=== PATIENT | female | born 1970 | race Caucasian/White ===

== ENCOUNTER 2016-11-13 19:43 | Emergency (ER) | payer MEDICARE, MEDICAID ==
[2016-11-13] MEDS ORDERED: Ondansetron HCl/PF 4 MG/2 ML Vial ONE (20:16)
[2016-11-13] MEDS ORDERED: Fentanyl 100 MCG/2 ML VIAL ONE (20:16)
[2016-11-13] MEDS ORDERED: diphenhydrAMINE HCl 50 MG/ML 1 ML VIAL ONE (20:17)
[2016-11-13 20:25] LABS: #Basophils 0.1 thou/uL (0.0-0.2); #Lymphocytes 2.5 thou/uL (1.20-3.40); #Monocytes 0.6 thou/uL (0.11-0.59); #Neutrophils 6.8 thou/uL (1.40-6.50); %Basophils 0.9 % (0.0-1.0); %Eosinophils 0.4 % (0.0-10.0); %Monocytes 5.6 % (0.0-10.0); Hematocrit 45.5 % (36.0-47.0); Red Blood Cell (RBC) Count 4.68 mill/uL (4.20-5.40); White Blood Cell (WBC) Count 9.9 thou/uL (4.8-10.8)
[2016-11-13 20:26] LABS: Bilirubin Negative (Negative); Blood, Urine Negative (Negative); Glucose, Urine (Dipstick) Negative (Negative); Ketone, Urine Negative (Negative); Nitrite Negative (Negative); Protein, Urine (Dipstick) Negative (Neg-Trace); Urobilinogen 0.2 mg/dL (0.2-1.0)
[2016-11-13 20:35] LABS: Bacteria/HPF 1+ HPF (None Seen); RBC/HPF 0-3 HPF (0-3); Squamous Epithelial 0-3 HPF (0-3); WBC/HPF 0-3 HPF (0-3)
[2016-11-13 20:41] LABS: Methadone Not Detected (NotDetected); Methamphetamine Not Detected (NotDetected)
[2016-11-13 20:42] LABS: ALT (SGPT) 8 U/L (0-55); AST (SGOT) 11 U/L (5-34); Alkaline Phosphatase 87 U/L (40-150); Anion Gap 14 mmol/L (10-20); BUN (Urea Nitrogen) 7 mg/dL (7.0-18.7); Bilirubin, Total 0.3 mg/dL (0.2-1.2); Calc. Creatinine Clearance 0 mL/min (70-130); Calcium 9.7 mg/dL (7.8-10.44); Carbon Dioxide 29 mmol/L (22-29); Chloride 104 mmol/L (98-107); Estimated GFR-MDRD 74; Globulin 2.7 g/dL (2.4-3.5)
--- NOTE | 2016-11-13 22:30 | CT ---
CT ABDOMEN AND PELVIS WITHOUT CONTRAST 11/13/[address] of the abdomen and pelvis was performed for evaluation of left flank pain. Axial slices we re acquired, then coronal reconstructions were done. There is a nonobstructing calculus in the left kidney. Otherwise, the kidneys appear unremarkable wi thin the limitations of a noncontrast study. Neither ureter is dilated. There is a tiny calcificatio n near the left UVJ, but it really does not appear to be in the ureter but adjacent to it. The ER ph ysician notes that she does not have any hematuria which might further confirm this impression. The lung bases are clear. The liver, spleen, pancreas, gallbladder, adrenal glands and abdominal aor ta showed no acute findings. The bowel is nondistended. There is no sign of obstruction or inflammatory change. No mesenteric carey nopathy was present. CT of the pelvis showed no pelvic masses, fluid collections or inflammatory changes. The appendix ap pears normal. IMPRESSION: Tiny nonobstructing left renal calculus. No firm evidence for ureter calculi. POS: HOME
--- NOTE | 2016-11-13 22:37 | ERRECORD ---
[facility] EMERGENCY RECORD HPI FLANK PAIN (21:41 DHAM) CHIEF COMPLAINT: Patient presents for evaluation of flank pain, on the left. HISTORIAN: History provided by patient, History provided by patient's family, Daughter, "feels just like the 9 kidney stones that I've had before". LOCATION FEMALE: Symptoms are localized, most severe in the left flank, no radiation, No migration of pain. QUALITY: Pain is dull in nature, described as aching. SEVERITY: Current severity of pain rated as 8/10. TIME COURSE: Sudden onset of symptoms, 15, hours prior to arrival, Symptoms are worsening. ASSOCIATED WITH FEMALE: No associated recent antibiotic use, No associated bright red blood per rectum, No associated chills, No associated constipation, No associated diarrhea, No associated fever, Associated with flank pain, on the left, No associated groin pain, No associated hematemesis, Associated with hematuria, currently resolved, No associated loss of appetite, No associated melena, Associated with nausea, No associated night sweats, No associated trauma, No associated recent travel, No associated inability to tolerate oral intake, No associated urinary tract infection signs or symptoms, Associated with vomiting, Number of times: 5-[address] EXACERBATED BY: Patient's condition exacerbated by nothing. RELIEVED BY: Patient's condition relieved by nothing. ROS (21:56 DHAM) CONSTITUTIONAL: Historian denies chills, denies fever, denies lethargy. RESPIRATORY: Historian denies cough, denies shortness of breath, denies sputum, denies wheezing. GI: Historian denies abdominal pain, denies appetite changes, denies diarrhea, reports nausea, reports vomiting. GENITOURINARY FEMALE: Historian denies dysuria, denies frequency, denies , denies urgency, denies urinary retention. occasionally hard to pass urine. MUSCULOSKELETAL: Historian reports back pain, denies fall, denies injury. chronic LBP and had been seeing pain mgmt but stopped recently. reports seeing her neurosurgeon recently but unsure when. has had fusions to low back and neck. SKIN: Historian denies rash. NEUROLOGIC: chronic numbness and weakness to the left leg with foot drop and AFO. no changes in these symptoms. HEMO/LYMPHATIC: Historian denies abnormal blood clotting, denies easy bruising. PAST MEDICAL HISTORY (20:01 MVIL) MEDICAL HISTORY: Flu vaccine not up to date, Tetanus &a-1R&a+25V*p+0X*b5622K*c202B*c15G*c2P*p-0X&a-25V&a+1R Name: Roxana Crowley : 1970 F46 MedRec: [id number] AcctNum: [id number] Prepared: elian Nov 13, 2016 23:18 by Interface Page 1 of 4 pMD [facility] EMERGENCY RECORD immunization up to date, Pneumococcal vaccine not up to date, Notes: LEAK IN HEART FROM RADIATION, Past medical history includes cardiac history, myocardial infarction, arrhythmia, atrial fibrillation, since 2008, Past medical history includes history of malignancy, to BACK OF THE TONGUE., treated with chemotherapy, treated with radiation, Date of last treatment: 2008, 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 reviewed 02/07/14. RE VIEWED 11/13/16. FEMALE SURGICAL HISTORY: BACK AND NECK SX, LYMPH NODE REMOVED A YEAR AGO FROM LT PELVIC AREA ALL TEETH REMOVED FEEDING TUBE TWICE, Surgical history of hysterectomy, Surgical history of tonsillectomy.reviewed 02/07/14. REVIEWED 11/13/16. PSYCHIATRIC HISTORY: Psychiatric history includes, anxiety, depression, Notes: PANIC ATTACKS.reviewed 02/07/14. REVIEWED 11/13/16. SOCIAL HISTORY: Patient currently uses tobacco, Patient smokes cigarettes, Patient smokes 1 pack per day, Patient has smoked for 20 years, Patient denies alcohol use, Patient denies drug use.reviewed 02/07/14. REVIEWED 11/13/16. FAMILY HISTORY: Family history is non-contributory to this case. Family history is non-contributory to this case.reviewed 02/07/14. REVIEWED 11/13/16. KNOWN ALLERGIES ketorolac tromethamine Penicillins: Reaction: Anaphylaxis povidone-iodine shellfish derived: Reaction: Anaphylaxis soap Sulfa (Sulfonamide Antibiotics): Reaction: Anaphylaxis CURRENT MEDICATIONS tiZANidine: TABLET : Strength - 4 mg : ORAL Patient Dose: once a day. (20:03 MVIL) traZODone: TABLET : Strength - 150 mg : ORAL Patient Dose: once a day (at bedtime). (20:04 MVIL) clonazePAM: TABLET : Strength - 2 mg : ORAL Patient Dose: 3 times a day. (20:04 MVIL) PROzac: CAPSULE : Strength - 10 mg : ORAL Patient Dose: once a day. (20:05 MVIL) estradiol: TABLET : Strength - 2 mg : ORAL Patient Dose: once a day. (20:05 MVIL) VITAL SIGNS VITAL SIGNS: Pain: 9, Time: 11/13/2016 19:50. (19:50 MVIL) &a-1R&a+25V*p+0X*h1149C*c202B*c15G*c2P*p-0X&a-25V&a+1R Name: Roxana Crowley : 1970 F46 MedRec: [id number] AcctNum: [id number] Prepared: Louisa Nov 13, 2016 23:18 by Interface Page 2 of 4 pMD [facility] EMERGENCY RECORD BP: 143/95, Pulse: 110, Resp: 20, Temp: 98.0 (Oral), Pain: 8, O2 sat: 98 on Room Air, Time: 11/13/2016 19:52. (19:52 MVIL) PHYSICAL EXAM (21:59 DHAM) CONSTITUTIONAL: Vital signs reviewed, Patient afebrile, Pulse, tachycardic, Blood pressure, hypertensive, Respiratory rate normal, Patient appears, uncomfortable, Patient appears in pain, in moderate pain distress, Patient alert and oriented to person, place and time. HEAD: Head exam included findings of head atraumatic, normocephalic. EYES: Eye exam included findings of eyelids normal to inspection, Pupils equally round and reactive to light, Extraocular muscles intact, Conjunctiva normal, Sclera normal, Eye exam included findings of anterior chamber clear. ENT: Ear exam normal, Nose exam normal, Pharynx exam normal, Uvula exam normal, Tonsil exam normal. NECK: Neck exam included findings of normal range of motion, no meningeal signs, turns her neck fully from side to side. RESPIRATORY CHEST: Respiratory exam included findings of no respiratory distress, Breath sounds clear, No wheezing, No rales, No rhonchi. CARDIOVASCULAR: Cardiovascular exam included findings of heart rate regular rate and rhythm, Heart sounds normal, normal S1, normal S2, no murmurs, no rub, no gallop, pulse in the 70's [address] ct results given. ABDOMEN FEMALE: Abdominal exam included findings of abdomen nontender, Bowel sounds normal, Liver normal, Spleen normal, no distension, no mass, no pulsatile masses, no peritoneal signs, no rigidity, no guarding, no rebound. BACK: Back exam included findings of, well healed scars in the lumbar spine, Range of motion, less than 45 degrees, limited by pain, in all directions to rom testing and cannot touch her toes in seated position, however,the pt was sitting on the bed with her chest laying on her right thigh doubled completely forward when I came into the exam area., Tenderness, paraspinal to the left mid back. UPPER EXTREMITY: Upper extremity exam normal. LOWER EXTREMITY: left leg with give away weakness of the quads, hamstrings, and she is wearing an AFO. her right leg has normal strength of the quads, hamstrings, foot flexors and extensors. her sensation is poor in all dermatomes of the left leg but normal in all dermatomes of the right leg. NEURO: Casco coma scale 15, Neuro exam findings include patient oriented to person, place and time, Speech normal, Gait abnormal, with limp, difficult to follow in her history very circuitous and tends to derail. SKIN: Skin exam included findings of skin warm, dry, and normal &a-1R&a+25V*p+0X*e4300T*c202B*c15G*c2P*p-0X&a-25V&a+1R Name: Roxana Crowley : 1970 F46 MedRec: [id number] AcctNum: [id number] Prepared: Louisa Nov 13, 2016 23:18 by Interface Page 3 of 4 pMD [facility] EMERGENCY RECORD in color, no rash. PSYCHIATRIC: Psychiatric exam included findings of patient oriented to person place and time, Normal affect, Remote memory normal, Recent memory normal, Concentration normal. RADIOLOGYINTERPRETATION (22:06 DHAM) ABDOMEN: Abdomen/pelvis CT scan, no abdominal aortic aneurysm, no appendicitis, no diverticulitis, no kidney stones, no injuries, no mass, no obstruction, no free air, no hydronephrosis, tiny non-obstructing stone in the left renal pelvis otherwise normal. MEDICATION ADMINISTRATION SUMMARY Drug Name: fentaNYL (PF) injection, Dose Ordered: 50 mcg, Route: IV Push, Status: Given, Time: 20:22 11/13/2016, Drug Name: Zofran intravenous, Dose Ordered: 4 mg, Route: IV Push, Status: Given, Time: 20:22 11/13/2016, Drug Name: Benadryl injection, Dose Ordered: 12.5 mg, Route: IV Push, Status: Given, Time: 20:22 11/13/2016, Detailed record available in Medication Service section. PROBLEM LIST No recorded problems DIAGNOSIS (22:08 DHAM) FINAL: PRIMARY: LOW BACK PAIN. PRESCRIPTION No recorded prescriptions DISPOSITION PATIENT: Disposition Type: Discharge, Disposition: *Discharge Home. (22:08 DHAM) Patient left the department. (22:31 MVIL) [place]ett: WONG=MD Rikki, Ryan MVIL=LOUIE Booth, Heather &a-1R&a+25V*p+0X*i0154X*c202B*c15G*c2P*p-0X&a-25V&a+1R Name: Roxana Crowley : 1970 F46 MedRec: [id number] AcctNum: [id number] Prepared: Louisa Nov 13, 2016 23:18 by Interface Page 4 of 4 pMD MTDD
--- NOTE | 2016-11-13 22:41 | PICIS ---
[facility] EMERGENCY RECORD TRIAGE (19:51 MVIL) TRIAGE NOTES: C/O LEFT FLANK PAIN SINCE EARLY THIS MORNING. (19:51 MVIL) PATIENT: NAME: Roxana Crowley, AGE: 46, GENDER: female, : Sat1970, TIME OF GREET: SatNov 13, 2016 19:44, PREFERRED LANGUAGE: Wallisian, ETHNICITY: Not or , ECODE BILLING MAP: [facility], SSN: [id number], Zip Code: [address], KG WEIGHT: 63.50, HEIGHT/LENGTH: 165.10cm, BMI: 23.29, , , PERSON ID: [id number], PAYMENT: [employer], PCP: NONE. (19:51 MVIL) PHONE: . (19:54) COMPLAINT: LEFT FLANK PAIN. (19:51 MVIL) ADMISSION: URGENCY: 3 Urgent, ADMISSION SOURCE: Home, TRANSPORT: CAR, BED: ER -03. (19:51 MVIL) ASSESSMENT: Assessment: C/O LEFT FLANK PAIN SINCE 4:30AM TODAY WITH VOMITING. H/O KIDNEY STONES., Symptoms began 11/13/2016 20:00, Symptoms began 12 hours ago. (20:01 MVIL) PAIN: Patient complains of pain described as, cramping, Location L FLANK, Pain is constant, No aggravating factors, No relieving factors. (20:01 MVIL) IMMUNIZATIONS: Flu vaccine not up to date, Tetanus immunization up to date, Pneumococcal vaccine not up to date. (20:01 MVIL) SIRS SCORING: Heart Rate 55-109 (0), Temp range 96.8-101.1 (0), respiratory rate 12-24 (0), Mental Status altered: no (0). (20:01 MVIL) TRIAGE SCREENING: Patient denies suicidal ideation, Patient denies presence of domestic violence. (20:01 MVIL) PROVIDERS: TRIAGE NURSE: Heather Booth RN. (19:51 MVIL) VITAL SIGNS: Pain 9, Time 11/13/2016 19:50. (19:50 MVIL) BP 143/95, Pulse 110, Resp 20, Temp 98.0, (Oral), Pain 8, O2 Sat 98, on Room Air, Time 11/13/2016 19:52. (19:52 MVIL) KNOWN ALLERGIES ketorolac tromethamine Penicillins: Reaction: Anaphylaxis povidone-iodine shellfish derived: Reaction: Anaphylaxis soap Sulfa (Sulfonamide Antibiotics): Reaction: Anaphylaxis CURRENT MEDICATIONS tiZANidine: TABLET : Strength - 4 mg : ORAL Patient Dose: once a day. (20:03 MVIL) traZODone: TABLET : Strength - 150 mg : ORAL Patient Dose: once a day (at bedtime). (20:04 MVIL) clonazePAM: &a-1R&a+25V*p+0X*r4056U*c202B*c15G*c2P*p-0X&a-25V&a+1R Name: Roxana Crowley : 1970 F46 MedRec: [id number] AcctNum: [id number] Prepared: elian Nov 13, 2016 23:25 by Interface Page 1 of 9 pMD [facility] EMERGENCY RECORD TABLET : Strength - 2 mg : ORAL Patient Dose: 3 times a day. (20:04 MVIL) PROzac: CAPSULE : Strength - 10 mg : ORAL Patient Dose: once a day. (20:05 MVIL) estradiol: TABLET : Strength - 2 mg : ORAL Patient Dose: once a day. (20:05 MVIL) VITAL SIGNS VITAL SIGNS: Pain: 9, Time: 11/13/2016 19:50. (19:50 MVIL) BP: 143/95, Pulse: 110, Resp: 20, Temp: 98.0 (Oral), Pain: 8, O2 sat: 98 on Room Air, Time: 11/13/2016 19:52. (19:52 MVIL) NURSING ASSESSMENT: GENITOURINARY (20:20 MVIL) CONSTITUTIONAL: Patient arrives ambulatory, Gait steady, History obtained from patient, Patient appears comfortable, Patient cooperative, Patient alert, Oriented to person, place and time, Skin warm, Skin dry, Skin normal in color, Mucous membranes pink, Mucous membranes moist, Patient is well-groomed, Patient complains of C/O LEFT FLANK PAIN. PAIN FEMALE: Pain exacerbated by nothing, Nothing has been tried to alleviate the pain, pressure pain, sharp pain, LEFT FLANK PAIN, constant, on a scale 0-10 patient rates pain as 8. GENITOURINARY FEMALE: no associated vaginal discharge, no associated vaginal bleeding. ABDOMEN: Abdomen assessment findings include abdomen symmetrical, Associated with nausea, Associated with vomiting, currently, Number of times: 5, DRY HEAVING NOW. NURSING PROCEDURE: IV (20:20 MVIL) PATIENT IDENITIFIER: Patient actively involved in identification process, Patient's identity verified by patient stating name, Patient's identity verified by hospital ID bracelet. IV SITE 1: IV therapy indicated for medication administration, IV established, to the right antecubital, using a 20 gauge catheter, in one attempt, Saline lock established, Flushed with normal saline (mls): 10, Labs drawn at time of placement, labeled in the presence of the patient and sent to lab. FOLLOW-UP SITE 1: After procedure, 2x3 ensure dressing applied, After procedure, IV line connections checked and properly labeled, After procedure, no drainage at IV site, After procedure, no swelling at IV site, After procedure, no redness at IV site, IV discontinued, due to patient being discharged, catheter intact. ORDER DETAILS Order Name: [facility], Status: Done, Time: 20:05 11/13/2016, &a-1R&a+25V*p+0X*r2210A*c202B*c15G*c2P*p-0X&a-25V&a+1R Name: Roxana Crowley : 1970 F46 MedRec: [id number] AcctNum: [id number] Prepared: SatNov 13, 2016 23:25 by Interface Page 2 of 9 D [facility] EMERGENCY RECORD User: SANDRA, - Ordered for: MD Brandt Darren, - Entered by: MD Brandt Darren - Louisa Nov 13, 2016 20:01, - Quantity: 1, Order Name: CBC with Differential, Status: Active, Time: 20:01 11/13/2016, User: WONG, - Ordered for: MD Brandt Darren, - Entered by: MD Brandt Darren - Louisa Nov 13, 2016 20:01, - Quantity: 1, Order Name: Comprehensive Metabolic Panel, Status: Active, Time: 20:01 11/13/2016, User: WONG, - Ordered for: MD Brandt Darren, - Entered by: MD Brandt Darren - Tue Nov 13, 2016 20:01, - Quantity: 1, Order Name: CT Stone Protocol, Status: Active, Time: 20:34 11/13/2016, User: WONG, - Ordered for: MD Brandt Darren, - Entered by: MD Brandt Darren - Tue Nov 13, 2016 20:34, - Quantity: 1, Order Name: Drug Screen, Urine, Status: Active, Time: 20:01 11/13/2016, User: WONG, - Ordered for: MD Brandt Darren, - Entered by: MD Brandt Darren - Tue Nov 13, 2016 20:01, - Quantity: 1, Order Name: ERRT Pulse Oximeter ER, Status: Active, Time: 20:01 11/13/2016, User: WONG, - Ordered for: MD Brandt Darren, - Entered by: MD Brandt Darren - Tue Nov 13, 2016 20:01, - Quantity: 1, Order Name: SALINE LOCK, Status: Done, Time: 20:05 11/13/2016, User: MVIL, - Ordered for: MD Brandt Darren, - Entered by: MD Brandt Darren - Tue Nov 13, 2016 20:01, - Quantity: 1, Order Name: Urinalysis with Microscopic, Status: Active, Time: 20:01 11/13/2016, User: WONG, - Ordered for: MD Brandt Darren, - Entered by: MD Brandt Darren - Tue Nov 13, 2016 20:01, - Quantity: 1. MEDICATION ADMINISTRATION SUMMARY Drug Name: fentaNYL (PF) injection, Dose Ordered: 50 mcg, Route: IV Push, Status: Given, Time: 20:22 11/13/2016, Drug Name: Zofran intravenous, Dose Ordered: 4 mg, Route: IV Push, Status: Given, Time: 20:22 11/13/2016, Drug Name: Benadryl injection, Dose Ordered: 12.5 mg, Route: IV Push, Status: Given, Time: 20:22 11/13/2016, Detailed record available in Medication Service section. &a-1R&a+25V*p+0X*n0190T*c202B*c15G*c2P*p-0X&a-25V&a+1R Name: Roxana Crowley : 1970 F46 MedRec: [id number] AcctNum: [id number] Prepared: SatNov 13, 2016 23:25 by Interface Page 3 of 9 pMD [facility] EMERGENCY RECORD MEDICATION SERVICE (20:22 [facility]) Benadryl injection: Order: Benadryl injection (diphenhydramine HCl) - Dose: 12.5 mg : IV Push Schedule: Now Ordered by: Ryan Brandt MD Entered by: Ryan Brandt MD SatNov 13, 2016 20:04 Documented as given by: Heather Booth RN SatNov 13, 2016 20:22 Patient, Medication, Dose, Route and Time verified prior to administration. Amount given: 12.5MG, IV SITE #1 IVP, initial medication, Catheter placement confirmed via flush prior to administration, IV site without signs or symptoms of infiltration during medication administration, No swelling during administration, No drainage during administration, IV flushed after administration, Correct patient, time, route, dose and medication confirmed prior to administration, Patient advised of actions and side-effects prior to administration, Allergies confirmed and medications reviewed prior to administration, Patient in position of comfort, Side rails up, Cart in lowest position, Family at bedside. fentaNYL (PF) injection: Order: fentaNYL (PF) injection (fentanyl citrate/preservative free) - Dose: 50 mcg : IV Push Schedule: Now Ordered by: Ryan Brandt MD Entered by: Ryan Brandt MD SatNov 13, 2016 20:05 Documented as given by: Heather Booth RN SatNov 13, 2016 20:22 Patient, Medication, Dose, Route and Time verified prior to administration. Amount given: 50MCG, IV SITE #1 IVP, initial medication, Slowly, Catheter placement confirmed via flush prior to administration, IV site without signs or symptoms of infiltration during medication administration, No swelling during administration, No drainage during administration, IV flushed after administration, Correct patient, time, route, dose and medication confirmed prior to administration, Patient advised of actions and side-effects prior to administration, Allergies confirmed and medications reviewed prior to administration, Patient in position of comfort, Side rails up, Cart in lowest position, Family at bedside. Zofran intravenous: Order: Zofran intravenous (ondansetron HCl) - Dose: 4 mg : IV Push Schedule: Now Ordered by: Ryan Brandt MD Entered by: Ryan Brandt MD SatNov 13, 2016 20:04 Documented as given by: Heather Booth RN SatNov 13, 2016 20:22 Patient, Medication, Dose, Route and Time verified prior to administration. Amount given: 4MG, IV SITE #1 IVP, initial medication, Catheter &a-1R&a+25V*p+0X*r6840V*c202B*c15G*c2P*p-0X&a-25V&a+1R Name: Roxana Crowley : 1970 F46 MedRec: [id number] AcctNum: [id number] Prepared: SatNov 13, 2016 23:25 by Interface Page 4 of 9 pMD [facility] EMERGENCY RECORD placement confirmed via flush prior to administration, IV site without signs or symptoms of infiltration during medication administration, No swelling during administration, No drainage during administration, IV flushed after administration, Correct patient, time, route, dose and medication confirmed prior to administration, Patient advised of actions and side-effects prior to administration, Allergies confirmed and medications reviewed prior to administration, Patient in position of comfort, Side rails up, Cart in lowest position, Family at bedside. HPI FLANK PAIN (21:41 DHAM) CHIEF COMPLAINT: Patient presents for evaluation of flank pain, on the left. HISTORIAN: History provided by patient, History provided by patient's family, Daughter, "feels just like the 9 kidney stones that I've had before". LOCATION FEMALE: Symptoms are localized, most severe in the left flank, no radiation, No migration of pain. QUALITY: Pain is dull in nature, described as aching. SEVERITY: Current severity of pain rated as 8/10. TIME COURSE: Sudden onset of symptoms, 15, hours prior to arrival, Symptoms are worsening. ASSOCIATED WITH FEMALE: No associated recent antibiotic use, No associated bright red blood per rectum, No associated chills, No associated constipation, No associated diarrhea, No associated fever, Associated with flank pain, on the left, No associated groin pain, No associated hematemesis, Associated with hematuria, currently resolved, No associated loss of appetite, No associated melena, Associated with nausea, No associated night sweats, No associated trauma, No associated recent travel, No associated inability to tolerate oral intake, No associated urinary tract infection signs or symptoms, Associated with vomiting, Number of times: 5-[address] EXACERBATED BY: Patient's condition exacerbated by nothing. RELIEVED BY: Patient's condition relieved by nothing. ROS (21:56 DHAM) CONSTITUTIONAL: Historian denies chills, denies fever, denies lethargy. RESPIRATORY: Historian denies cough, denies shortness of breath, denies sputum, denies wheezing. GI: Historian denies abdominal pain, denies appetite changes, denies diarrhea, reports nausea, reports vomiting. GENITOURINARY FEMALE: Historian denies dysuria, denies frequency, denies , denies urgency, denies urinary retention. occasionally hard to pass urine. MUSCULOSKELETAL: Historian reports back pain, denies fall, denies injury. chronic LBP and had been seeing pain mgmt &a-1R&a+25V*p+0X*m1455X*c202B*c15G*c2P*p-0X&a-25V&a+1R Name: Roxana Crowley : 1970 F46 MedRec: [id number] AcctNum: [id number] Prepared: elian Nov 13, 2016 23:25 by Interface Page 5 of 9 pMD [facility] EMERGENCY RECORD but stopped recently. reports seeing her neurosurgeon recently but unsure when. has had fusions to low back and neck. SKIN: Historian denies rash. NEUROLOGIC: chronic numbness and weakness to the left leg with foot drop and AFO. no changes in these symptoms. HEMO/LYMPHATIC: Historian denies abnormal blood clotting, denies easy bruising. 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 reviewed 02/07/14. RE VIEWED 11/13/16. FEMALE SURGICAL HISTORY: BACK AND NECK SX, LYMPH NODE REMOVED A YEAR AGO FROM LT PELVIC AREA ALL TEETH REMOVED FEEDING TUBE TWICE, Surgical history of hysterectomy, Surgical history of tonsillectomy.reviewed 02/07/14. REVIEWED 11/13/16. PSYCHIATRIC HISTORY: Psychiatric history includes, anxiety, depression, Notes: PANIC ATTACKS.reviewed 02/07/14. REVIEWED 11/13/16. SOCIAL HISTORY: Patient currently uses tobacco, Patient smokes cigarettes, Patient smokes 1 pack per day, Patient has smoked for 20 years, Patient denies alcohol use, Patient denies drug use.reviewed 02/07/14. REVIEWED 11/13/16. FAMILY HISTORY: Family history is non-contributory to this case. Family history is non-contributory to this case.reviewed 02/07/14. REVIEWED 11/13/16. PHYSICAL EXAM (21:59 DHAM) CONSTITUTIONAL: Vital signs reviewed, Patient afebrile, Pulse, tachycardic, Blood pressure, hypertensive, Respiratory rate normal, Patient appears, uncomfortable, Patient appears in pain, in moderate pain distress, Patient alert and oriented to person, place and time. HEAD: Head exam included findings of head atraumatic, normocephalic. EYES: Eye exam included findings of eyelids normal to inspection, Pupils equally round and reactive to light, Extraocular muscles intact, Conjunctiva normal, Sclera normal, Eye exam included findings of anterior chamber clear. ENT: Ear exam normal, Nose exam normal, Pharynx exam normal, Uvula exam normal, Tonsil exam normal. NECK: Neck exam included findings of normal range of motion, no meningeal signs, turns her neck fully from side to side. &a-1R&a+25V*p+0X*e2249V*c202B*c15G*c2P*p-0X&a-25V&a+1R Name: Roxana Crowley Jayjay : 1970 F46 MedRec: [id number] AcctNum: [id number] Prepared: Louisa Nov 13, 2016 23:25 by Interface Page 6 of 9 pMD [facility] EMERGENCY RECORD RESPIRATORY CHEST: Respiratory exam included findings of no respiratory distress, Breath sounds clear, No wheezing, No rales, No rhonchi. CARDIOVASCULAR: Cardiovascular exam included findings of heart rate regular rate and rhythm, Heart sounds normal, normal S1, normal S2, no murmurs, no rub, no gallop, pulse in the 70's after ct results given. ABDOMEN FEMALE: Abdominal exam included findings of abdomen nontender, Bowel sounds normal, Liver normal, Spleen normal, no distension, no mass, no pulsatile masses, no peritoneal signs, no rigidity, no guarding, no rebound. BACK: Back exam included findings of, well healed scars in the lumbar spine, Range of motion, less than 45 degrees, limited by pain, in all directions to rom testing and cannot touch her toes in seated position, however,the pt was sitting on the bed with her chest laying on her right thigh doubled completely forward when I came into the exam area., Tenderness, paraspinal to the left mid back. UPPER EXTREMITY: Upper extremity exam normal. LOWER EXTREMITY: left leg with give away weakness of the quads, hamstrings, and she is wearing an AFO. her right leg has normal strength of the quads, hamstrings, foot flexors and extensors. her sensation is poor in all dermatomes of the left leg but normal in all dermatomes of the right leg. NEURO: Bernarda coma scale 15, Neuro exam findings include patient oriented to person, place and time, Speech normal, Gait abnormal, with limp, difficult to follow in her history very circuitous and tends to derail. SKIN: Skin exam included findings of skin warm, dry, and normal in color, no rash. PSYCHIATRIC: Psychiatric exam included findings of patient oriented to person place and time, Normal affect, Remote memory normal, Recent memory normal, Concentration normal. EVENTS TRANSFER: Triage to Emergency Emergency Room -03. (SatNov 13, 2016 19:51 MVIL) Removed from Emergency Emergency Room -03. (22:31 MVIL) RADIOLOGYINTERPRETATION (22:06 DHAM) ABDOMEN: Abdomen/pelvis CT scan, no abdominal aortic aneurysm, no appendicitis, no diverticulitis, no kidney stones, no injuries, no mass, no obstruction, no free air, no hydronephrosis, tiny non-obstructing stone in the left renal pelvis otherwise normal. O2SAT INTERPRETATION (21:32 DHAM) O2SAT: Single pulse oximetry, Oxygen saturation 98%, on room air, Oxygen saturation interpretation: Normal, No intervention required. &a-1R&a+25V*p+0X*p1492A*c202B*c15G*c2P*p-0X&a-25V&a+1R Name: Roxana Crowley : 1970 F46 MedRec: [id number] AcctNum: [id number] Prepared: SatNov 13, 2016 23:25 by Interface Page 7 of 9 pMD [facility] EMERGENCY RECORD PROBLEM LIST No recorded problems DIAGNOSIS (22:08 DHAM) FINAL: PRIMARY: LOW BACK PAIN. DISPOSITION PATIENT: Disposition Type: Discharge, Disposition: *Discharge Home. (22:08 DHAM) Patient left the department. (22:31 MVIL) INSTRUCTION (22:09 DHAM) DISCHARGE: BACK AND NECK PAIN, GENERAL. SPECIAL: Range of motion as demonstrated 5-10 times a day Ice on 30 min and off 30 min for several days or you may use your tens unit as prescribed. Return for intractible pain, bowel or bladder difficulties, numbness in the saddle region or any other concerns. Call your pcp for recheck in 2-3 days. PRESCRIPTION No recorded prescriptions IMAGING (22:31 MVIL) *DISCHARGE INSTRUCTIONS RECEIPT: Image captured from scanner. *SUPPLY CHARGE SHEET: Image captured from scanner. ADMIN (23:13 DHAM) DIGITAL SIGNATURE: MD Brandt Darren. RESULTS (20:33 DHAM) LABORATORY: Urinalysis with Microscopic Collection DT: SatNov 13, 2016 20:20, Color Yellow , Range (Yellow), Clarity Clear , Range (Clear), Specific [place], Urine 1.015 , Range (1.005-1.030), pH, Urine 7.5 , Range (5.0-9.0), Leukocyte Negative , Range (Negative), Nitrite Negative , Range (Negative), Protein, Urine (Dipstick) Negative mg/dL, Range (Neg-Trace), Glucose, Urine (Dipstick) Negative mg/dL, Range (Negative), Ketone, Urine Negative mg/dL, Range (Negative), Urobilinogen 0.2 mg/dL, Range (0.2-1.0), Bilirubin Negative , Range (Negative), Blood, Urine Negative , Range (Negative). CBC with Differential Collection DT: SatNov 13, 2016 20:22, White Blood Cell (WBC) Count 9.9 thou/uL, Range (4.8-10.8), Red Blood Cell (RBC) Count 4.68 mill/uL, Range (4.20-5.40), Hemoglobin 15.0 g/dL, Range (12.0-16.0), &a-1R&a+25V*p+0X*i6370J*c202B*c15G*c2P*p-0X&a-25V&a+1R Name: Roxana Crowley : 1970 F46 MedRec: [id number] AcctNum: [id number] Prepared: SatNov 13, 2016 23:25 by Interface Page 8 of 9 pMD [facility] EMERGENCY RECORD Hematocrit 45.5 %, Range (36.0-47.0), Mean Corpuscular Volume 97.4 fl, Range (81.0-99.0), *Mean Corpuscular Hemoglobin 32.2 - H pg, Range (27.0-31.0), Mean Corpuscular HGB CONC 33.1 g/dL, Range (32.0-36.0), *RBC Distribution Width 11.0 - L %, Range (11.5-14.5), Platelet Count 279 thou/uL, Range (130-400), *Mean Platelet Volume 6.0 - L fL, Range (7.4-10.4), %Neutrophils 68.4 %, Range (42.0-75.0), %Lymphocytes 24.7 %, Range (21.0-51.0), %Monocytes 5.6 %, Range (0.0-10.0), %Eosinophils 0.4 %, Range (0.0-10.0), %Basophils 0.9 %, Range (0.0-1.0), *#Neutrophils 6.8 - H thou/uL, Range (1.40-6.50), #Lymphocytes 2.5 thou/uL, Range (1.20-3.40), *#Monocytes 0.6 - H thou/uL, Range (0.11-0.59), #Eosinphils 0.0 thou/uL, Range (0.0-0.7), #Basophils 0.1 thou/uL, Range (0.0-0.2). Lockett: WONG=MD Rikki, Ryan MVIL=LOUIE Booth, Heather &a-1R&a+25V*p+0X*p4384C*c202B*c15G*c2P*p-0X&a-25V&a+1R Name: Roxana Crowley : 1970 F46 MedRec: [id number] AcctNum: [id number] Prepared: Louisa Nov 13, 2016 23:25 by Interface Page 9 of 9 pMD MTDD
== END 2016-11-13 22:27 | disposition home or self-care (01) ==
LOC: BURERS 19:43
DX: M54.5 Low back pain (principal); I48.91 Unspecified atrial fibrillation; F41.9 Anxiety disorder, unspecified; F32.9 Major depressive disorder, single episode, unspecified; F17.210 Nicotine dependence, cigarettes, uncomplicated
CPT/HCPCS: 74176; 80053; 80306; 81001; 85025; 94760; 96374; 96375; G0478; J1200; J2405; J3010